=== PATIENT | female | born 1995 | race African-American/Black ===

== ENCOUNTER 2016-10-22 18:13 | Emergency (ER) | payer MEDICAID ==
[~2016-10-22] VITALS: Ht 157.5 cm; Wt 47.5 kg
[~2016-10-22 18:13] MED LIST: CALNTAB PO
[2016-10-22 18:15] VITALS: BP 134/70; PULSE 94; RESP 12; TEMP 98.1; O2SAT 99
[2016-10-30] MEDS ORDERED: PREN1CHW7 PO (14:38)
[2016-10-30] MEDS ORDERED: PROM25TA5 PO (14:38)
[2016-11-04] MEDS ORDERED: AZIT1POW PO (09:12)
[2016-11-04] MEDS ORDERED: METR-1 PO (09:12)
[2016-11-06] MEDS ORDERED: AZIT500T2 PO (12:12)
[2016-11-27] MEDS ORDERED: PROM1SUP9 RECTAL (16:08)
[2016-11-27] MEDS ORDERED: PREN1CHW7 PO (16:10)
[2017-03-19] MEDS ORDERED: FERR300S PO (13:25)
[2017-03-25] MEDS ORDERED: PRENMIS9 PO (15:40)
[2017-03-25] MEDS ORDERED: FERRTAB2 PO (15:40)
[2017-03-25] MEDS ORDERED: PREN1CHW7 PO (15:53)
== END 2016-10-23 00:49 | disposition left against medical advice (07) ==
LOC: NED 18:13
DX: R10.9 Unspecified abdominal pain (principal)
CPT/HCPCS: 99281

== ENCOUNTER 2017-01-08 17:14 | Emergency (ER) | payer MEDICAID ==
[~2017-01-08] VITALS: Ht 157.5 cm; Wt 53.1 kg
[~2017-01-08 17:14] MED LIST changes: -CALNTAB PO; +PREN1CHW7 PO; +PROM1SUP9 RECTAL
[2017-01-08 17:33] VITALS: BP 105/53; PULSE 105; RESP 16; TEMP 98.6; O2SAT 99
--- NOTE | 2017-01-08 18:12 | PD ---
HPI . Cold symptoms Chief Complaint: Cold / Flu Symptoms Time Seen by Provider: 18:06 Travel History International Travel<30 days: No Contact w/Intl Traveler<30days: No Traveled to known affect area: No History of Present Illness HPI Patient presents with cold symptoms since yesterday. She describes nasal congestion is now blood-tinged area she has a sore throat. She denies fever. She has not taken anything for it. She has not had any known sick contacts. [id number]: ENT DURATION: One day TIMING: Continuous CONTEXT: 6 months MODIFYING FACTORS: She has not noted any exacerbating or relieving factors but she has not tried any vrwj-oet-[id number] medications ASSOCIATED SYMPTOMS: No cough or difficulty breathing PFSH Past Medical History Hx Anticoagulant Therapy: No Cardiovascular Problems: No Chemotherapy: No Cerebrovascular Accident: No Diabetes: No Diminished Hearing: No Respiratory: No ?: : 0 Para: 0 Social History Alcohol Use: No Tobacco Use: No Substance Use: No Allergies-Medications (Allergen,Severity, Reaction): Coded Allergies: No Known Allergies (Verified , 01/08/17) Reported Meds & Prescriptions Reported Meds & Active Scripts Active Vitafol Gummies 3.33-0.333-34.8 mg ( Vit W/ Ferric Phospha) 1 Chw Chw 1 Chew PO DAILY Promethazine Supp (Promethazine HCl) 25 Mg Supp 25 Mg RECTAL Q6H PRN Vitafol Gummies 3.33-0.333-34.8 mg ( Vit W/ Ferric Phospha) 1 Chw Chw 1 Chew PO HS Review of Systems Except as stated in HPI: all other systems reviewed are Neg General / Constitutional: No: Fever, Chills Eyes: No: Drainage, Redness HENT: Positive: Sore Throat, Rhinorrhea, Congestion, Nosebleed Cardiovascular: No: Chest Pain or Discomfort Respiratory: No: Shortness of Breath Gastrointestinal: No: Nausea, Vomiting, Diarrhea, Abdominal Pain Genitourinary: No: Urgency, Frequency, Dysuria Physical Exam Narrative GENERAL: Awake and alert and in no acute distress. SKIN: Warm and dry. ENT: Mild edema of the nasal mucosa with clear rhinorrhea. No active bleeding. Oropharynx is clear. NECK: Supple. No cervical lymphadenopathy. CARDIOVASCULAR: Regular rate and rhythm. RESPIRATORY: No accessory muscle use. MUSCULOSKELETAL: No obvious deformities. No edema. NEUROLOGICAL: Awake and alert. No obvious cranial nerve deficits. Motor grossly within normal limits. Normal speech. PSYCHIATRIC: Appropriate mood and affect; insight and judgment normal. Data Data Last Documented VS Vital Signs Date Time Temp Pulse Resp B/P Pulse Ox O2 Delivery O2 Flow Rate FiO2 01/08/17 17:33 98.6 105 16 105/53 99 MDM Medical Decision Making Medical Screen Exam Complete: Yes Emergency Medical Condition: Yes Differential Diagnosis Differential diagnosis includes but is not limited to influenza, upper respiratory infection, bronchitis, pneumonia Narrative Course This is a patient who is 6 months . She presents with cold symptoms which started yesterday. She has not been running a fever. She will be treated symptomatically. Diagnosis Primary Impression: URI (upper respiratory infection) Qualified Code: J06.9 - Viral upper respiratory tract infection Patient Instructions: Cold Symptoms (ED), General Instructions Additional Instructions: I recommend the use of a Neti Pot. You may use a nasal spray such as Afrin for up to 3 days as needed for nasal congestion. You may take an avwr-hrs-jrkamho antihistamine such as Zyrtec, Hillary or Claritin as needed for runny secretions. (safe during ) You may take pseudoephedrine as needed for congestion. You will need to sign for this at the pharmacy. (safe during ) You may take a cough syrup such as Delsym as needed for cough. (safe during ) Tylenol as needed for fever and body aches. No ibuprofen or aspirin. Throat lozenges/sprays as needed for sore throat. Warm salt water gargles for sore throat. Hot tea with lemon and honey also helps soothe a sore throat. Disposition: 01 DISCHARGE HOME Condition: Stable Mxaine Erickson MD Jan 08, 2017 18:12
[2017-03-19] MEDS ORDERED: FERR300S PO (13:25)
[2017-03-25] MEDS ORDERED: PRENMIS9 PO (15:40)
[2017-03-25] MEDS ORDERED: FERRTAB2 PO (15:40)
[2017-03-25] MEDS ORDERED: PREN1CHW7 PO (15:53)
== END 2017-01-08 18:29 | disposition home or self-care (01) ==
LOC: PHED 17:14
DX: J06.9 Acute upper respiratory infection, unspecified (principal)
CPT/HCPCS: 99283

== ENCOUNTER 2017-03-06 11:09 | Emergency (ER) | payer MEDICAID ==
[~2017-03-06 11:09] MED LIST changes: -PROM1SUP9 RECTAL
--- NOTE | 2017-03-06 12:00 | PD ---
HPI Chief Complaint Nausea, vomiting, abdominal pain after trauma Date Seen: March 06, 2017 Time Seen: 11:30 (Luly Cuevas MD R2) Travel History International Travel<30 Days: No Contact w/Intl Traveler<30Days: No Known Affected Area: No (Luly Cuevas MD R2) History of Present Illness HPI Patient is a 21-year-old G1 at 31/2 weeks gestation with JONO of May 07 based on LMP, confirmed by second trimester ultrasound presenting due to vomiting, abdominal pain. She reports that she was at work on Thursday when a child ran into her abdomen with significant force. She was not knocked over. After this time she has been unable to keep any food down. Yesterday she began to experience left upper quadrant pain as well as lower abdominal pain. She denies diarrhea. She endorses movement although decreased from what she normally experiences, denies vaginal bleeding, leakage of fluid, contractions. care [facility] with [facility]. Para: 0 : 1 (Luly Cuevas MD R2) History Past Medical History Narrative Medical Sickle cell trait (Luly Cuevas MD R2) Obstetric History Obstetric History G1 No complications with current (Luly Cuevas MD R2) Past Surgical History Narrative Surgical Ring[place] teeth removed (Luly Cuevas MD R2) Family History Family History: Negative (Luly Cuevas MD) Social History Alcohol Use: No Tobacco Use: No Substance Abuse: No (Luly Cuevas MD R2) Allergies-Medications (Allergen,Severity, Reaction): Coded Allergies: No Known Allergies (Verified , 02/04/17) Home Meds Active Scripts Nitrofurantoin Monohydrate Macrocrystals (Macrobid)100 Mg [id number] Mg PO BID #14 CAP Ref 0 Prov:Luly Cuevas MD 03/06/17 Ondansetron Odt 4 Mg Tab4 Mg SL Q8HR PRN (Nausea/Vomiting) #20 TAB Ref 0 Prov:Luly Cuevas MD 03/06/17 Vit W/ Ferric Phospha (Vitafol Gummies 3.33-0.333-34.8 mg)1 Chw Chw1 Chew PO DAILY #30 BOTTLE Ref 11 Prov:Kathy Heart CNM [employer] 11/27/16 Vit W/ Ferric Phospha (Vitafol Gummies 3.33-0.333-34.8 mg)1 Chw Chw1 Chew PO HS #30 BOTTLE Ref 11 Prov:Kathy Heart CNM [employer]EC[employer]IVE 10/30/16 Review of Systems General / Constitutional: No: Fever Eyes: No: Visual changes HENT: No: Headaches Cardiovascular: No: Chest Pain or Discomfort Respiratory: No: Cough Gastrointestinal: Nausea, Vomiting, Abdominal Pain, No: Diarrhea Genitourinary: No: Dysuria Musculoskeletal: No: Edema Skin: No Rash, No Itching Neurologic: No: Headache (Luly Cuevas MD R2) Physical Exam Narrative GENERAL: Well-nourished, well-developed patient. SKIN: Warm and dry. HEAD: Normocephalic and atraumatic. EYES: No scleral icterus. No injection or drainage. ENT: No nasal drainage noted. Mucous membranes pink. Airway patent. NECK: Supple, trachea midline. No JVD. CARDIOVASCULAR: Regular rate and rhythm without murmurs, gallops, or rubs. RESPIRATORY: Breath sounds equal bilaterally. No accessory muscle use. ABDOMEN/GI: Abdomen soft, non-tender, bowel sounds present, no rebound, no guarding Gravid to 31 weeks size GENITOURINARY: External Genitalia: intact and normal in appearance Cervix: Posterior Dilatation: Closed Effacement: 0% Station: -3 Presentation: Vertex Membranes: Intact Uterine Contractions: Irritability FHT's: Category: 1 Baseline: 140 Reactive: + Variability: moderate Decels: Absent, some uterine irritability EXTREMITIES: No cyanosis or edema. BACK: Nontender without obvious deformity. No CVA tenderness. NEUROLOGICAL: Awake and alert. Motor and sensory grossly within normal limits. Five out of 5 muscle strength in all muscle groups. Normal speech. (Luly Cuevas MD R2) Data Data Orders Vital Signs (Adult) .ON ADMISSION (03/06/17 11:54) ^ Labor Status (03/06/17 11:54) Urinalysis - C+S If Indicated (03/06/17 11:54) ^ Hydration (03/06/17 11:54) Us Ob Bpp Wo Nst W Repeat (03/06/17 ) Lactated Ringer's 1000 Ml Inj (Lr 1000 M (03/06/17 13:15) Comprehensive Metabolic Panel (03/06/17 13:09) Ondansetron Inj (Zofran Inj) (03/06/17 13:15) Urine Culture (03/06/17 13:30) (Luly Cuevas MD R2) [facility] Medical Record Reviewed: Yes Interpretation(s) Patient is a 21-year-old G1 at 31/2 weeks gestation with JONO of May 07 based on LMP, confirmed by ultrasound presenting due to vomiting, abdominal pain. Pt with sickle cell trait. 1) IUP Category 1 tracing, reassuring Cervical exam: 0 cm/0%/-3 Continue routine care Pt has an appointment with [facility] in 1 week 2) Abdominal Pain Pt with recent abdominal trauma Blood type O+ US preformed: No signs of retroplacental or retroperitoneal hemorrhage, overall within normal limits Minimal uterine irritability, improved with IV and oral hydration 3) Nausea/vomiting 1L Bolus LR Pt given IV Zofran x1 Pt able to tolerate food and water, no vomiting in the ED Pt discharged with prescription for Zofran 4) UTI UA with trace leukocyte esterase, moderate bacteria Patient given prescription for Macrobid 100mg po BID dw Dr. Jasmine (Luly Cuevas MD R2) Diagnosis Diagnosis: Primary Impression: Normal IUP (intrauterine ) on ultrasound Qualified Code: Z34.93 - Normal IUP (intrauterine ) on ultrasound, third trimester Disposition: 01 DISCHARGE HOME Condition: Stable Scripts Nitrofurantoin Monohydrate Macrocrystals (Macrobid)100 Mg [id number] Mg PO BID #14 CAP Ref 0 Prov:Luly Cuevas MD R2 03/06/17 Ondansetron Odt 4 Mg Tab4 Mg SL Q8HR PRN (Nausea/Vomiting) #20 TAB Ref 0 Prov:Luly Cuevas MD R2 03/06/17 Additional Instructions: Pt to return to ED if she experiences leakage of fluid, vaginal bleeding similar to that of the period, regular painful contractions every 5 minutes or less. Attestation Agree with Dr. Cuevas' note. Pt seen and evaluated with resident. D/c home with ROLANDO precautions. Reassuring status, no evidence of PTL. (Ranjana Jasmine MD) Luly Cuevas MD R2 March 06, 2017 12:00 Ranjana Jasmine MD March 06, 2017 16:26
[2017-03-06 12:09] VITALS: BP 104/69; PULSE 81
[2017-03-06 12:13] VITALS: RESP 20; TEMP 97.6
[2017-03-06] MEDS ORDERED: ONDANSETRON HCL 4 MG/2 ML VIAL ONE (13:15)
[2017-03-06] MEDS ORDERED: LACTATED RINGER'S 1000 ML INJ 1,000 ML IV SCH (13:15)
[2017-03-06 13:43] LABS: ALT (GPT) 16 U/L (9-42); ANION GAP 9 MEQ/L (5-15); AST (GOT) 16 U/L (16-38); BLOOD UREA NITROGEN 3 MG/DL (7-18); CHLORIDE 107 MEQ/L (98-107); GLOMERULAR FILTRATION RATE 182 ML/MIN (>89); POTASSIUM 3.4 MEQ/L (3.5-5.1); SODIUM (NA) 141 MEQ/L (136-145)
[2017-03-06 13:46] LABS: ALKALINE PHOSPHATASE 133 U/L (45-117); TOTAL BILIRUBIN ADULT 0.4 MG/DL (0.2-1.0)
[2017-03-06 14:05] LABS: BACTERIA, URINE MOD /hpf; BLOOD, URINE NEG (NEG); COMMENT (UR) CULTURE INDICATED; CULTURE IF INDICATED CULTURE INDICATED; GLUCOSE,URINE NEG (NEG); KETONE, URINE NEG (NEG); NITRITE,URINE NEG (NEG); SQUAMOUS EPITHELIAL CELL URINE 1 /hpf (0-5); URINE COLOR LIGHT-YELLOW (YELLW/STRAW)
[2017-03-06] MEDS ORDERED: ONDANSETRON HCL 4 MG/2 ML VIAL IV PUSH ONE (14:15)
[2017-03-06] MEDS ORDERED: ONDA4TAB7 SL (14:55)
[2017-03-06] MEDS ORDERED: MACR100C2 PO (15:08)
[2017-03-19] MEDS ORDERED: FERR300S PO (13:25)
[2017-03-25] MEDS ORDERED: FERRTAB2 PO (15:40)
[2017-03-25] MEDS ORDERED: PRENMIS9 PO (15:40)
[2017-03-25] MEDS ORDERED: PREN1CHW7 PO (15:53)
== END 2017-03-06 15:30 | disposition home or self-care (01) ==
LOC: HOBED 11:09
DX: O26.893 Other specified pregnancy related conditions, third trimester (principal); O21.9 Vomiting of pregnancy, unspecified; R10.9 Unspecified abdominal pain; Z3A.31 31 weeks gestation of pregnancy; S39.91XA Unspecified injury of abdomen, initial encounter; W50.0XXA Accidental hit or strike by another person, initial encounter; Y93.9 Activity, unspecified; Y99.9 Unspecified external cause status; Y99.0 Civilian activity done for income or pay
CPT/HCPCS: 59025; 76816; 76819; 80053; 81001; 87086; 96374; 99285; J2405